=== PATIENT | female | born 1955 | race Caucasian/White ===

== ENCOUNTER 2022-07-20 08:11 | Emergency (ER) | payer MEDICARE, BC, SELFPAY ==
[2022-07-20 08:17] VITALS: BP 122/80; PULSE 76; RESP 16; TEMP 35.9; O2SAT 94; BMI 22.8
--- NOTE | 2022-07-20 08:43 | ED.GENADULT ---
HPI - General Adult General Date Seen: 07/20/22 Chief complaint: Abdominal Pain Stated complaint: Abdominal pain Time Seen by Provider: 07/20/22 08:21 Source: patient Mode of arrival: ambulatory Limitations: no limitations History of Present Illness HPI narrative: Patient is a 67-year-old woman here with her roommate for evaluation of abdominal pain which started overnight. She reports that she had gotten up to go the bathroom, to urinate. She does not know that she had a lot of abdominal pain at that time but when she got back into bed she developed relatively sudden onset of abdominal pain which she says kept her up the rest of the night. She had reported to nursing that it was right-sided, but tells me that it is more diffuse, perhaps onset was more mid right abdomen but it seems to go all the way across her abdomen now. It is crampy, moderate in intensity, associated with some mild nausea at times although she is not particularly nauseated now. No vomiting. She seems to feel more nauseated when she is lying on her left side. No diarrhea, no black or bloody stools. No history of similar pain. She does have a history of kidney stones once but says she did not have any pain with passage of her kidney stone. She has not had any dysuria, frequency or hematuria. She has not had any fevers. Pain has been constant since its onset. She is passing gas. She does have a history of appendectomy, denies other abdominal surgeries. Related Data Home Medications Medication Instructions Recorded Confirmed escitalopram oxalate 10 mg tablet mg 07/20/22 famotidine 20 mg tablet mg 07/20/22 Allergies Allergy/AdvReac Type Severity Reaction Status Date / Time codeine Allergy Intermediate Vomiting Verified 07/20/22 08:23 desipramine Allergy Intermediate Verified 07/20/22 08:23 Review of Systems Status of ROS: Reports: 10 or more systems reviewed and unremarkable except as noted in History and below PFSH PFS Social History Smoking Status: Never smoker How often do you have a drink containing alcohol: 4 or more times a week AUDIT-C Alcohol total score: 4 Non-prescribed substance use: denies use Exam Narrative: Exam Narrative: Vital signs as noted above. In general, an alert, well-appearing patient. Head: Normocephalic, atraumatic. Eyes: Pupils are equal reactive. Extraocular movements are full. Conjunctivae are normal. ENT: Mucous membranes are moist. Throat is normal. Neck: Supple without lymphadenopathy. Heart: Regular rate and rhythm. No murmur or rub. Lungs: Clear bilaterally. No increased work of breathing, crackles or wheezes. Abdomen: Soft and nondistended. Minimal tenderness to palpation, negative Vazquez sign. Bowel sounds are present. No rebound guarding or rigidity. No CVA tenderness. Extremities: Well perfused. No edema. No calf tenderness. Pulses intact. Neurologic: Patient is alert and oriented to person and place. Speech is fluent. Face is symmetric. Moves all extremities equally. Affect: Normal. Skin: Warm and dry. Well perfused. Const: Vital Signs, click to edit/add: Vital Signs - 24 hr 07/20/22 08:17 07/20/22 10:54 07/20/22 13:13 Temperature 96.7 F L Pulse Rate [Pulse Oximeter] 76 80 90 Respiratory Rate 16 16 Blood Pressure [Le ft Upper Arm] 122/80 131/77 124/79 Pulse Oximetry 94 96 95 Oxygen Delivery Me thod Room Air Room Air Room Air 07/20/22 13:14 Temperature 96.7 F L Pulse Rate [Pulse Oximeter] 90 Respiratory Rate 16 Blood Pressure [Le ft Upper Arm] 124/79 Pulse Oximetry Oxygen Delivery Me thod Course Course Hospital Course: Patient declines the need for anything for pain or nausea at this time. Will start with some IV fluids, ideally would get a urine sample prior to ordering imaging as she does have history of kidney stone although symptoms are not altogether highly suggestive of kidney stone. If she has significant hematuria, would probably start with a CT scan without contrast. Otherwise, considerations include obstruction, diverticulitis, colitis, pancreatitis, cholecystitis. Labs are pending at this time. Labs are essentially all within normal limits. Her white blood cell count is slightly low at 4 but otherwise CBC is unremarkable. Metabolic panel, lactate, LFTs, CRP and lipase are all normal. Urinalysis shows 0-2 red cells and 0-[address] scan by my review did not show any acute inflammatory changes, free air, evidence of obstruction. She did have a little bit of dilation of the right side of the colon. Radiology read this as follows: Impression: Mild fluid distention of the proximal colon and mid to distal small bowel with minimal enteric and colonic mucosal hyperemia likely representing enterocolitis. No evidence of obstruction. Nonobstructive calculi within the left collecting system. No evidence of distal obstructive uropathy. I have reviewed all this with the patient. She continues to deny the need for anything for pain. At this time, symptoms will likely resolve on their own over the next couple few days. I have recommended a bland diet, continued hydration at home, and return to the ER for any worsening of symptoms such as severe. Symptoms such as fever, vomiting, black or bloody stools. Follow-up with primary care if not improving over the next week or so. Vital Signs Vital signs: Initial Vital Signs Temperature 96.7 F L 07/20/22 08:17 Temperature Source Temporal Artery Scan 07/20/22 08:17 Pulse Rate 76 07/20/22 08:17 Respiratory Rate 16 07/20/22 08:17 Blood Pressure 122/80 07/20/22 08:17 Blood Pressure Mean 94 07/20/22 08:17 Blood Pressure Position Supine 07/20/22 08:17 Pulse Oximetry 94 07/20/22 08:17 Oxygen Delivery Method 07/20/22 08:17 Vital Signs Temperature 96.7 F L 07/20/22 08:17 Pulse Rate 76 07/20/22 08:17 Respiratory Rate 16 07/20/22 08:17 Blood Pressure 122/80 07/20/22 08:17 Pulse Oximetry 94 07/20/22 08:17 Oxygen Delivery Method 07/20/22 08:17 Temperature 96.7 F L 07/20/22 13:14 Pulse Rate 90 07/20/22 13:14 Respiratory Rate 16 07/20/22 13:14 Blood Pressure 124/79 07/20/22 13:14 Pulse Oximetry 95 07/20/22 13:13 Oxygen Delivery Method 07/20/22 13:13 Medical Decision Making Lab Data Labs: Lab Results 07/20/22 07/20/22 07/20/22 Range/Units 08:48 08:48 08:48 WBC 3.94 L (4.50-11.00) K/uL RBC 4.78 (4.00-5.20) m/uL Hgb 14.6 (12.0-16.0) gm/dL Hct 42.7 (33.0-51.0) % MCV 89 (80-100) fL MCH 31 (26-34) pg MCHC 34 (32-36) gm/dL RDW Coeff of Bobby 11.7 (11.5-15.5) % Plt Count 225 (140-440) K/uL Neut % (Auto) 85.8 H (42.0-72.0) % Lymph % (Auto) 8.4 L (20-44) % [place] % (Auto) 4.8 (0.0-11.0) % Eos % (Auto) 1.0 (0.0-7.0) % Baso % (Auto) 0.0 (0.0-3.0) % Neut # (Auto) 3.40 (1.7-7.0) K/uL Lymph # (Auto) 0.30 L (0.90-2.90) K/uL [place] # (Auto) 0.20 (0.00-0.90) K/UL Eos # (Auto) 0.00 (0.00-0.50) K/uL Baso # (Auto) 0.00 (0.00-0.30) K/uL Sodium 138 (135-149) mmol/L Potassium 4.2 (3.6-5.1) mmol/L Chloride 107 (96-114) mmol/L Carbon Dioxide 22 (20-32) mmol/L BUN 16 (7-30) mg/dL Creatinine 0.5 (0.5-1.5) mg/dL Estimated Creat Clear 48.43 Estimated GFR 104 ml/min Glucose 92 (60-115) mg/dL Lactate 0.7 (0.5-1.9) mmol/L Calcium 9.0 (8.4-10.6) mg/dL Total Bilirubin 1.1 (0.1-1.5) mg/dL Direct Bilirubin 0.1 (0.0-0.5) mg/dL AST 29 (12-35) U/L ALT 24 (4-35) U/L Alkaline Phosphatase 47 (40-150) U/L C-Reactive Protein 0.8 (0.5-1.0) mg/dL Total Protein 7.3 (6.0-8.3) g/dL Albumin 4.4 (3.3-5.0) g/dL Lipase 52 (23-300) U/L Urine Color (Yellow) Urine Appearance (Clear) Urine pH (5.0-8.5) Ur Specific [place] (1.000-1.030) Urine Protein (Negative) Urine Glucose (UA) (Negative) Urine Ketones (Negative) Urine Blood (Negative) Urine Nitrite (Negative) Urine Bilirubin (Negative) Urine Urobilinogen (0.2-1.0) Ur Leukocyte Esterase (Negative) Urine RBC (0-2) Urine WBC (0-5) Ur Squamous Epith Cells (None-Few) Amorphous Sediment (None) Urine Bacteria (None) Urine Mucus (None) 07/20/22 Range/Units 09:00 WBC (4.50-11.00) K/uL RBC (4.00-5.20) m/uL Hgb (12.0-16.0) gm/dL Hct (33.0-51.0) % MCV (80-100) fL MCH (26-34) pg MCHC (32-36) gm/dL RDW Coeff of Bobby (11.5-15.5) % Plt Count (140-440) K/uL Neut % (Auto) (42.0-72.0) % Lymph % (Auto) (20-44) % [place] % (Auto) (0.0-11.0) % Eos % (Auto) (0.0-7.0) % Baso % (Auto) (0.0-3.0) % Neut # (Auto) (1.7-7.0) K/uL Lymph # (Auto) (0.90-2.90) K/uL [place] # (Auto) (0.00-0.90) K/UL Eos # (Auto) (0.00-0.50) K/uL Baso # (Auto) (0.00-0.30) K/uL Sodium (135-149) mmol/L Potassium (3.6-5.1) mmol/L Chloride (96-114) mmol/L Carbon Dioxide (20-32) mmol/L BUN (7-30) mg/dL Creatinine (0.5-1.5) mg/dL Estimated Creat Clear Estimated GFR ml/min Glucose (60-115) mg/dL Lactate (0.5-1.9) mmol/L Calcium (8.4-10.6) mg/dL Total Bilirubin (0.1-1.5) mg/dL Direct Bilirubin (0.0-0.5) mg/dL AST (12-35) U/L ALT (4-35) U/L Alkaline Phosphatase (40-150) U/L C-Reactive Protein (0.5-1.0) mg/dL Total Protein (6.0-8.3) g/dL Albumin (3.3-5.0) g/dL Lipase (23-300) U/L Urine Color Yellow (Yellow) Urine Appearance Clear (Clear) Urine pH 7.0 (5.0-8.5) Ur Specific [place] 1.025 (1.000-1.030) Urine Protein Negative (Negative) Urine Glucose (UA) Negative (Negative) Urine Ketones 1+ A (Negative) Urine Blood Trace-intact A (Negative) Urine Nitrite Negative (Negative) Urine Bilirubin Negative (Negative) Urine Urobilinogen 0.2 (0.2-1.0) Ur Leukocyte Esterase Negative (Negative) Urine RBC 0-2 (0-2) Urine WBC 0-2 (0-5) Ur Squamous Epith Cells Few (None-Few) Amorphous Sediment Few A (None) Urine Bacteria Few A (None) Urine Mucus Few A (None) Discharge Plan Discharge Clinical Impression: Enteritis, Abdominal pain Patient Disposition: Home, Self-Care Condition: Stable Instructions: Abdominal Pain (ED) Additional Instructions: Ibuprofen or Tylenol as needed. Maintain hydration. [place] diet the next day or 2. Return for worsening pain, new symptoms such as fever, vomiting, bloody stools. Primary care follow-up if no better over the next several days. Prescriptions: No Action famotidine 20 mg tablet Label Comments: TAKE 1 TABLET (20 MG) BY MOUTH TWO TIMES DAILY. escitalopram oxalate 10 mg tablet Label Comments: TAKE ONE TABLET BY MOUTH DAILY Follow Up/Referrals: Gerardo Carlisle MD [Primary Care Provider] - Stand Alone Forms: [employer] Info Instructions
[2022-07-20 08:57] LABS: Lactate* 0.7 mmol/L (0.5-1.9)
[2022-07-20] MEDS: 0.9 % SODIUM CHLORIDE 1000 ml 1,000 ML IV (09:00)
[2022-07-20 09:01] LABS: Hematocrit 42.7 % (33.0-51.0); Hemoglobin* 14.6 gm/dL (12.0-16.0); Lymphocytes Percent Auto 8.4 % (20-44); Mean Corpuscular HGB Conc 34 gm/dL (32-36); Mean Corpuscular Hemoglobin 31 pg (26-34); Mean Corpuscular Volume 89 fL (80-100); Monocytes Percent Auto 4.8 % (0.0-11.0); Neutrophils Percent Auto 85.8 % (42.0-72.0); Platelet Count* 225 K/uL (140-440); RDW Coefficient of Variation % 11.7 % (11.5-15.5); Red Blood Count 4.78 m/uL (4.00-5.20); White Blood Count* 3.94 K/uL (4.50-11.00)
[2022-07-20 09:04] LABS: Slide Review Reflex No
[2022-07-20 09:17] LABS: Albumin* 4.4 g/dL (3.3-5.0); Chloride* 107 mmol/L (96-114); Sodium* 138 mmol/L (135-149)
[2022-07-20 09:18] LABS: Potassium* 4.2 mmol/L (3.6-5.1)
[2022-07-20 09:20] LABS: Bilirubin Direct* 0.1 mg/dL (0.0-0.5); Bilirubin Total* 1.1 mg/dL (0.1-1.5); Carbon Dioxide* 22 mmol/L (20-32); Creatinine* 0.5 mg/dL (0.5-1.5); Est. Creatinine Clearance* 48.43; Estimated Glomerular Filt Rate 104 ml/min; Total Protein* 7.3 g/dL (6.0-8.3)
--- NOTE | 2022-07-20 09:20 | ED.NURSE ---
pt up to br independent, urine collected and sent to lab.
[2022-07-20 09:21] LABS: Alanine Aminotransferase* 24 U/L (4-35); Alkaline Phosphatase* 47 U/L (40-150); Aspartate Amino Transferase* 29 U/L (12-35); Blood Urea Nitrogen* 16 mg/dL (7-30); Glucose* 92 mg/dL (60-115); Lipase* 52 U/L (23-300)
[2022-07-20 09:23] LABS: C Reactive Protein* 0.8 mg/dL (0.5-1.0)
[2022-07-20 09:45] LABS: Appearance Urine Clear (Clear); Bilirubin Urine Negative (Negative); Blood Urine Trace-intact (Negative); Color Urine Yellow (Yellow); Glucose Urine Negative (Negative); Ketones Urine 1+ (Negative); Leukocyte Esterase Urine Negative (Negative); Nitrite Urine Negative (Negative); Protein Urine Negative (Negative); Specific Gravity Urine 1.025 (1.000-1.030); Urobilinogen Urine 0.2 (0.2-1.0)
[2022-07-20 10:00] LABS: Amorphous Sediment Urine Few; Bacteria Urine Few; Mucus Urine Few; RBC Urine 0-2 (0-2); Squamous Epithelial Cell Urine Few (None-Few); WBC Urine 0-2 (0-5)
--- NOTE | 2022-07-20 10:04 | CRLHL7_ITS ---
For Patients: As a result of the Century Cures Act, medical imaging exams and procedure reports are released immediately into your electronic medical record. You may view this report before your referring provider. If you have questions, please contact your health care provider. Indication: Diffuse abdominal pain and nausea, history of appendectomy and left oophorectomy Technique: Volumetric multidetector CT images of the abdomen and pelvis were obtained after the administration of intravenous contrast. 66 cc Isovue 370 low osmolar intravenous contrast Comparison: None available. Findings: There is bibasilar atelectasis and parenchymal scar. There is mild to moderate hepatomegaly. The liver is normal in attenuation without intrahepatic biliary ductal dilatation. The portal vein is patent. The gallbladder is unremarkable without evidence of radiopaque calculus. There is no significant common biliary ductal dilatation or abrupt cut off. The spleen is normal in enhancement and size. There is mild nonspecific thickening of the gastric antrum and hyperemia of the gastric rugal folds. The pancreas is normal in enhancement without significant atrophy. The adrenal glands are unremarkable. There are nonobstructive calculi in the left collecting system. The kidneys demonstrate preserved corticomedullary differentiation without evidence of obstructive uropathy. There is moderate fluid distention of the proximal colon and mid to distal small bowel with mild mucosal hyperemia without evidence of dilatation to suggest obstruction. The appendix is surgically absent. There is no significant mesenteric, retroperitoneal, or pelvic sidewall lymph nodes. The aorta is nonaneurysmal. There is no significant atherosclerotic disease appreciated. The solid pelvic viscera are grossly unremarkable. There is no free fluid or free air. The anterior abdominal wall is intact without significant hernias. The lumbar vertebral body heights are grossly maintained with minimal anterolisthesis of L3 on L4. 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 Impression: Mild fluid distention of the proximal colon and mid to distal small bowel with minimal enteric and colonic mucosal hyperemia likely representing enterocolitis. No evidence of obstruction. Nonobstructive calculi within the left collecting system. No evidence of distal obstructive uropathy. Please note that all CT scans at this facility use dose modulation, iterative reconstruction, and/or weight-based dosing when appropriate to reduce radiation dose to as low as reasonably achievable. Dictated by Elmer Sanabria MD @ 07/20/2022 12:38:12 PM (Electronically Signed)
[2022-07-20 10:54] VITALS: BP 131/77; PULSE 80; O2SAT 96
[2022-07-20 13:13] VITALS: BP 124/79; PULSE 90; RESP 16; O2SAT 95
[2022-07-20 13:14] VITALS: BP 124/79; PULSE 90; RESP 16; TEMP 35.9
--- NOTE | 2022-07-20 13:18 | PC.NURSE ---
Discharge. VS taken. SL was removed intact. pt was feeling better. went over discharge with pt and answered all questions pt left with friend. @ [id number]
== END 2022-07-20 13:10 | disposition home or self-care (01) ==
PROVIDERS: Emergency Provider Emergency Medicine; PCP Family Medicine
DX: K52.9 Noninfective gastroenteritis and colitis, unspecified (principal); R10.9 Unspecified abdominal pain
CPT/HCPCS: 36415; 74177; 80048; 80076; 81001; 83605; 83690; 85025; 86140; 87086; 96360; 99284; 99285; J7030; Q9967

== ENCOUNTER 2024-03-12 13:46 | Outpatient (CLI) | payer MEDICARE, BC, SELFPAY ==
--- OUTSIDE RECORDS SUMMARY | 2024-03-12 19:58 | XMS_ITS | Clinical Summary ---
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 Active vitamin e 400 unit capsule Take 400 units by mouth. Active Cholecalciferol, Vitamin D3, (Vitamin D-3) 400 unit capsule Take by mouth once daily. 0 04/03/2021 Active Methylcellulose, with sugar, (Citrucel, sucrose,) powd Mix in liquid then take by mouth. 0 04/03/2021 Active estrogens, conjugated (Premarin) 0.625 mg/gram vaginal creamIndications:Atr ophic vaginitis APPLY 0.5 GRAMS INTRAVAGINALLY DAILY FOR 2 WEEKS AT THE START OF THERAPY, THEN DECREASE TO TWICE WEEKLY. 30 g 05/10/2023 Active atorvastatin (LIPITOR) 20 mg tabletIndications:Hy perlipidemia, unspecified hyperlipidemia type Take 1 Tablet (20 mg) by mouth at bedtime. 90 Tablet 3 05/26/2023 Active escitalopram oxalate (LEXAPRO) 10 mg tabletIndications:De pression, unspecified depression type Take 1 Tablet (10 mg) by mouth once daily. 90 Tablet 3 05/26/2023 Active famotidine (PEPCID) 20 mg tabletIndications:Ch ronic GERD Take 1 Tablet (20 mg) by mouth once daily. 90 Tablet 3 05/26/2023 Active Active Problems Problem Noted Date Diagnosed Date Chronic intermittent left SI low back area. 12/0 05/2021 Concussion with no loss of consciousness 01/202203/12/2022 Osteopenia 05/31/2019 IBS (irritable bowel syndrome) Hyperlipidemia Depression Resolved Problems Problem Noted Date Diagnosed Date Resolved Date Pap smear for cervical cancer screening 05/31/2021 10/17/2021 Overview (07/24/2021): 05/2021 NIL/HPV Negative. Plan: Routine screening Immunizations Name Administration Dates Next Due COVID-19 vaccine (GonnaBe NTech 30mcg/0.3mL) 12YO+ BIVALENT PF, MDV 03/12/2022 COVID-19 vaccine (GonnaBe NTech 30mcg/0.3mL) 12YO+ QUEENIE-SUCROSE PF, MDV 09/17/2021 COVID-19 vaccine (GonnaBe NTech 30mcg/0.3mL) PF, MDV 04/11/2021,10/01/2020,09/10/2020 Hepatitis A (Adult) 10/13/2016,02/11/2012 Hepatitis B (Peds) 06/07/2012,03/21/2012, 012 Influenza A (H1N1), Inactiva patito (Age >=3 Years) 06/06/2009 Influenza Intradermal PF 18-64 yrs 02/11/2012 Influenza, High-dose Quadriv alent Inactivated 02/24/2023 Influenza, IIV3 (Age 6-35 mos) 05/13/2009 Influenza, IIV3 (Age >=3 years) 04/20/2001 Influenza, IIV4 03/10/2021,03/09/2019 Influenza, IIV4 (=>6mos) MDV 02/21/2020 Influenza, Inactivated AIIV4 (Age 65+ Years) Preserv Free 03/12/2022 Pneumococcal Conj 20-valent (Prevnar 20) 022 Pneumococcal Poly,23-Valent (Pneumovax) 05/13/20 05 Td (Age >=7 Years) 12/04/2003 Tdap 07/11/2020,10/16/2008 Zoster (Shingrix-RZV, recombinant) 09/27/2017, Family History Medical History Relation Name Comments Heart Disease Father after 55 Cancer Maternal Grandfather pancrea s Lymphoma Mother Stroke Mother Anesthesia Problem No Family History Cancer-breast No Family History Cancer-colon No Family History Cancer-ovarian No Family History Diabetes No Family History Relation Name Status Comments Father Maternal Grandfather Mother Social History Tobacco Use Types Packs/Day Years Used Date Smoking Tobacco: Never Smokeless Tobacco: Never Tobacco Cessation:Counseling Given: No Alcohol Use Standard Drinks/Week Comments Yes 0 (1 standard drink = 0.6 oz pur e alcohol) 1-2 glass of wine daily PHQ-2 Answer Date Recorded PHQ-2 TOTAL SCORE 0 05/26/2023 Social Connections Answer Date Recorded Frequency of Communication with Friends and Fami ly Not on file 11/09/2023 Financial Resource Strain Answer Date R ecorded Difficulty of Paying Living Expenses 3 11/04/2022 Difficulty of Paying Living Expenses Not on file 11/04/2022 Food Insecurity Answer Date Recorded Worried About Running Out of Food in the Last Ye ar 1 11/04/2022 Transportation Needs Answer Date Record ed Lack of Transportation (Medical) 1 11/04/2022 Housing Stability Answer Date Recorded Unable to Pay for Housing in the Last Year 1 11/04/2022 Sex and Gender Information Value Date Recorded Sex Assigned at Female 05/11/2021 3:17 PM MANAGER RAIL Gender Identity Female 05/11/2021 3:17 PM MANAGER RAIL Sexual Orientation Not on file Obstetrics History Last Filed Vital Signs Vital Sign Reading Time Taken Comments Blood Pressure 121/73 05/26/2023 2:13 PM MANAGER RAIL Pulse 70 05/26/2023 2:13 PM MANAGER RAIL Temperature 36.7 ??C (98.1 ??F) 06/26/2021 8:30 AM CS T Respiratory Rate 14 02/03/2023 11:03 AM CDT Oxygen Saturation 94% 05/26/2023 2:13 PM MANAGER RAIL Inhaled Oxygen Concentration - - Weight 64 kg (141 lb) 05/26/2023 2:13 PM MANAGER RAIL Height 163.4 cm (5' 4.33) 05/26/2023 2:13 PM CS T Body Mass Index 23.95 05/26/2023 2:13 PM MANAGER RAIL Plan of Treatment Health Maintenance Due Date Last Done Comments Mammogram for age 45-75 11/12/2023 11/11/2022, 07/22 COVID-19 vaccine series ( season) 2024 03/22/2023, 10/07/2022, 03/12/2022, Additional history exists Influenza for age 65+ 01/30/2024 02/24/2023 , 03/12/2022, 03/10/2021, Additional history exists BMI (ht and wt on same day) for age 18+ 05/26/2024 05/26/2023, 11/04/2022, 10/17/2021, Additional history exists Depression screening for age 12+ 05/26/2024 05/26/2023, 11/04/2022, 11/04/2022, Additional history exists Medicare Wellness for age 65+ 05/26/2024 05/26/2023 Lipids for age 45-75 05/26/2028 05/26/2023, 11/04/2022, 10/17/2021, Additional history exists Tetanus booster 07/11/2030 07/11/2020, 09/28, 12/04/2003 Colonoscopy through age 75 02/03/203302/03, 02/03/2023, 02/03/2023, Additional history exists Zoster (shingles) series for age 50+ Completed 09/27/2017, 07/14/2017 Hepatitis C screening for ag e 18-79 Completed 07/11/2020 Tdap Completed 07/11/2020, 10/16/2008 Pneumococcal series for age 65+ Completed , 05/13/2005 DEXA/DXA scan for age 65+ Completed 11/11/2022 Procedures Procedure Name Priority Date/Time Associated Diagnosis Comments LIPID PANEL W REFLEX MEASURED LDL Routine 05/26/2023 2:58 PM MANAGER RAIL Hyperlipidemia, unspecified hyperlipidemia type COLONOSCOPY SCREENING Routine 02/03/2023 9:11 AM CDT Screening for colon cancer XR DXA BONE DENSITY 2 SITES AXIAL Routine 11/11/2022 10:58 AM CDT Post-menopausal XR MAMMO TAMARA BILAT SCREEN Routine 11/11/2022 10:34 AM CDT Encounter for screening mammogram for malignant neoplasm of breast ANTI HCV Routine 07/11/2020 10:09 AM MANAGER RAIL Need for hepatitis C screening test from Last 3 Months or Most Recently Relevant to Health Maintenance Results * LIPID PANEL W REFLEX MEASURED LDL (05/26/2023 2:58 PM MANAGER RAIL) CHOLESTEROL,TOTAL 170 100 - 199 mg/dL 05/26/2023 9:48 PM MANAGER RAIL [facility] Comment: Cholesterol, Total Reference Ranges Desirable <200 mg/dL Borderline 200-239 mg/dL High >=240 mg/dL TRIGLYCERIDES 148 <150 mg/dL 05/26/2023 9:48 PM MANAGER RAIL [facility] HDL CHOLESTEROL 63 >40 mg/dL 9:48 PM MANAGER RAIL [facility] NON-HDL CHOLESTEROL 107 <145 mg/dl 05/26/2023 9:48 PM MANAGER RAIL [facility] CHOL/HDL RATIO 2.70 <4.50 05/26/2023 9:48 PM MANAGER RAIL [facility] LDL CHOLESTEROL 77 <=130 mg/dL 05/26/2023 9:48 PM MANAGER RAIL [facility] VLDL CHOLESTEROL 30 <=30 mg/dL 05/26/2023 9:48 PM MANAGER RAIL [facility] PROVIDER ORDERED STATUS RANDOM 05/26/2023 9:48 PM MANAGER RAIL [facility] Blood BLOOD SPECIMEN / Unknown Venipuncture / Unknown 05/26/2023 2:58 PM MANAGER RAIL 05/26/2023 2:58 PM MANAGER RAIL Gerardo Carlisle MD CHEMISTRY [facility] [address] [place] [address], * COLONOSCOPY (02/03/2023 9:22 AM CDT) 02/03/2023 9:22 AM CDT Narrative Transcriptions Aurelio Amador MD - 02/03/2023 10:36 AM CDT Patient Name: Rowan Pena Procedure Date: 02/03/2023 Gender: Female Date of : 1955 Admit Type: Outpatient Procedure: Colonoscopy Proceduralist: Aurelio Amador MD , Marlen Milian, RN (Nurse), Nancy Castaneda (Nurse) Referring MD: Gerardo Carlisle Indications/Pre-Op Diagnosis: Screening for colorectal malignant neoplasm, Last colonoscopy: December 2012 Medications: Fentanyl 100 micrograms IV, Midazolam 4 mgIV, The level of sedation administered wasmoderate Procedure Description: The patient had risks, benefits and alternatives explained to andgave informed consent. The patient had a stable cardiopulmonary status and judged an adequate candidate for conscious sedation. The [id number] was passed through the anus and advanced to the cecum, identified by appendiceal orifice and ileocecal valve. Thecolonoscopy was performed without difficulty. The patient tolerated the procedure well. The quality of the bowel preparation was good. The ileocecal valve, appendiceal orifice, and rectum were photographed. Complications: No immediate complications. Estimated Blood Loss & Specimen: Estimated blood loss: none. Specimen collected - None Findings: The perianal and digital rectal examinations were normal. The entire examined colon appeared normal. Impressions/Post-Op Diagnosis: - The entire examined colon is normal. - No specimens collected. Recommendation: - Patient has a contact number available for emergencies. The signsand symptoms of potential delayed complications were discussed with the patient. Return to normal activities tomorrow. Written discharge instructions were provided to the patient. - Resume previous diet. - Continue present medications. - Repeat colonoscopy in 10 years for screening purposes. Moderate Sedation: A time out was performed before the procedure. Moderate (conscious) sedation was administered by the endoscopy nurse and supervised bythe endoscopist. The following parameters were monitored: oxygensaturation, heart rate, blood pressure, EKG, CO2, respiratory rate, adequacy of pulmonary ventilation and reponse to care. Please refer to the patient's medical record flowsheets and nursing notes for moderate sedation details. Total physician intraservice time was 19 minutes. Aurelio Amador MD 02/03/2023 10:36:33 AM This report has been signed electronically. Note Initiated On: 02/03/2023 9:22 AM Procedure Code(s): --- Professional --- 01546, Colonoscopy, flexible; diagnostic, including collection of specimen(s) bybrushing or washing, when performed (separateprocedure) Diagnosis Code(s): --- Professional --- Z12.11, Encounter for screening formalignant neoplasm of colon CPT copyright 2021 [employer]. All rights reserved. The codes documented in this report are preliminary and upon professional fee coder reviewmay be revised to meet current compliance requirements. Scope In: 10:12:12 AM Scope Withdrawal Time 0 hours 6 minutes 48 seconds Scope Out: 10:29:47 AM Aurelio Amador MD PROCEDURE ORD * (ABNORMAL) XR DXA BONE DENSITY 2 SITES AXIAL (11/11/2022 10:58 AM CDT) Anatomical Region Laterality Modality Spine, HIPS, HIPL, HIPR Other Impressions 11/11/2022 4:26 PM CDT Osteopenia. RECOMMENDATIONS: The National Osteoporosis Foundation recommends pharmacologic treatment for patients with T-scores of -2.5 or less, patients with prior history of fragility fractures, or patients with 10-year probability of greater than 3% at hips or greater than 20% of suffering major osteoporotic fractures. Recommend continued optimization of calcium and vitamin D intake through dietary means and/or supplementation and regular exercise. Repeat scan recommended in 3-5 years. Barbra McLeran PA-C [facility] 11/11/2022 Narrative 11/11/2022 4:26 PM CDT For Patients: Results are automatically released to your [facility] ([employer]) account once available, in compliance with federal regulations. This means that you may see your results before your provider has had a chance to review them. Please allow 2-3 business days for your provider to comment on the results. XR DXA Bone Mineral Density (BMD) EXAM LOCATION: [facility] [address] [facility] [address] PATIENT NAME: Rowan Pena DATE OF : 1955 EXAM DATE: 11/11/2022 REQUESTING PROVIDER: Gerardo Carlisle MD GENDER AT : female HEIGHT: 5' 4.09 (11/04/2022) WEIGHT: ??136 lb 12.8 oz (11/04/2022) MENOPAUSAL STATUS: Postmenopausal RACE/ETHNICITY: White RISK FACTORS: Family History of Osteoporosis, Family History of Hip Fracture (parental) and White Race CURRENT MEDICATION FOR BONE LOSS: NONE INDICATION: Post-Menopause COMPARISON DATE(S): None DXA scans are compared to prior studies for a patient only when the two (or more) studies were performed on the same scanner. It is not possible to compare data generated on one scanner to data from another because there are not standards in DXA equipment. This applies even if the two scanners are made by the same cyber systems administrator. PROCEDURE: Dual-energy x-ray absorptiometry performed with routine technique. Reporting is completed in the form of a T-score. The T-score represents the standard deviation from peak bone mass based on young healthy adult. A Z-score is used for diagnosis in premenopausal women, and for men under the age of 50. FINDINGS: RESULT LUMBAR SPINE L1 - L4 BMD: 0.944 g/cm2 T-Score: - 2.0 Z-Score: - 0.3 Change from prior: ??None RESULTS FEMUR Left femoral neck BMD: 0.860 g/cm2 T-Score: - 1.3 Z-Score: + 0.3 Change from prior: ??None Right femoral neck BMD: 0.890 g/cm2 T-Score: - 1.1 Z-Score: + 0.5 Change from prior: ??None Left hip BMD: 0.811 g/cm2 T-Score: - 1.6 Z-Score: - 0.3 Change from prior: ??None Right hip BMD: 0.834 g/cm2 T-Score: - 1.4 Z-Score: - 0.1 Change from prior: ??None WHO criteria: Normal: T-score at or above -1 SD Osteopenia: T-score between -1.1 and -2.4 SD Osteoporosis: T-score at or below -2.5 SD FRAX RISK CALCULATION (USED FOR OSTEOPENIA ONLY): 10-year probability of major osteoporotic fracture: 15.6%. 10-year probability of hip fracture: 0.9%. Gerardo Carlisle MD DEXA * XR MAMMO TAMARA BILAT SCREEN (11/11/2022 10:34 AM CDT) Anatomical Region Laterality Modality BREASTS, Breast Left, Breast Right Bilateral Mammography Impressions 11/12/2022 2:59 PM CDT ??There is no radiographic evidence for malignancy. ??Recommend annual mammograms. MAMMOGRAM ASSESSMENT: ??ACR 1 Negative PATIENTS: You will also receive a letter with your examination results in an easy to read format. ??If you have questions about your results, please contact your referring provider. Narrative 11/12/2022 2:59 PM CDT For Patients: As a result of the Century Cures Act, medical imaging exams and procedure reports are released immediately into your electronic medical record. You may view this report before your referring provider. If you have questions, please contact your health care provider. XR MAMMO TAMARA BILAT SCREEN [[id number]] CLINICAL HISTORY: ??This is an asymptomatic 67 y.o. patient. INDICATION FOR EXAM: Mammogram Screening. TECHNIQUE: CC & MLO views were obtained. ??This study was evaluated with the assistance of Computer-Aided Detection. Breast Tomosynthesis was used in interpretation. COMPARISON FILM: Yes 07/22/20 Truveris ?? FINDINGS: ??The breasts are heterogeneously dense, which may obscure small masses. There are no dominant masses, suspicious micro calcifications or areas of architectural distortion. eGrardo Carlisle MD MAMMO * ANTI HCV (07/11/2020 10:09 AM MANAGER RAIL) HEPATITIS C ANTIBODY Non-React salomón Non-React salomón 07/11/2020 5:37 PM MANAGER RAIL [facility] Comment:Antibodies to HCV no t detected; does not exclude the possibility of exposure to HCV. Blood BLOOD SPECIMEN / Unknown Venipuncture / Unknown 07/11/2020 10:09 AM MANAGER RAIL 07/11/2020 10:09 AM MANAGER RAIL Gerardo Carlisle MD SEND OUTS [facility] [address] [place] [address], from Last 3 Months or Most Recently Relevant to Health Maintenance Care Teams [employer] Relationship Specialty Start Date End Date Gerardo Carlisle MD [address] [place] [address] PCP - General Family Practice 10/01/20
== END 2024-03-12 13:47 | disposition home or self-care (01) ==
LOC: NFLDREF 19:56
PROVIDERS: PCP Family Medicine; Referring Provider Family Medicine; Visit Provider Physician Assistant
DX: R10.9 Unspecified abdominal pain (principal); M54.50 Low back pain, unspecified
CPT/HCPCS: 81001; 81003; 87086